=== PATIENT | female | born 1970 | race Caucasian/White ===

== ENCOUNTER 2017-12-01 07:10 | Emergency (ER) | payer BC ==
[2017-12-01 07:31] VITALS: BP 133/98
--- NOTE | 2017-12-01 07:44 | UC ---
Throat Pain/Nasal Forrest HPI - HPI Summary HPI Summary: Patient presents to urgent care reporting that she had a head cold approximately 7 days ago. Patient states he symptoms lasted through the weekend. Patient has a last 48 hours she has increased frontal head pressure. Patient and she finishes pressure behind her eyes. No nausea vomiting. Patient has been alternating Motrin and Tylenol. Patient has taken DayQuil without relief. Patient states showers slightly improved temporarily. Pain is worse when she leans over. No nausea or vomiting. No documented fever but states she's been having chills. No abdominal pain. No nausea vomiting. Patient is a schoolteacher. Patient's medications reviewed this severe patient is not . - History of Current Complaint Chief Complaint: UCRespiratory Stated Complaint: HEADACHE SINUS Time Seen by Provider: 12/01/17 07:28 Hx Obtained From: Patient Hx Last Menstrual Period: 11/05 Onset/Duration: Gradual Onset Severity: Moderate Pain Intensity: 9 Pain Scale Used: 0-10 Numeric - Allergies/Home Medications Allergies/Adverse Reactions: Allergies Allergy/AdvReac Type Severity Reaction Status Date / Time No Known Allergies Allergy Verified 12/01/17 07:31 Home Medications: Home Medications Acetaminophen [Acetaminophen Extra Strength] 1,000 mg PO Q6H PRN 12/01/17 [ History Confirmed 12/01/17] Ibuprofen TAB* [Motrin TAB* 400 MG] 400 mg PO Q6H PRN 12/01/17 [History Confirmed 12/01/17] Lo-Estrin 1 tab PO QAM 12/01/17 [History Confirmed 12/01/17] PMH/Surg Hx/FS Hx/Imm Hx Previously Healthy: Yes - Surgical History Surgical History: Yes Surgery Procedure, Year, and Place: tubal - Family History Known Family History: Positive: Other - Noncontributoryn - Social History Occupation: Employed Full-time Lives: With Family Alcohol Use: Rare Substance Use Type: None Smoking Status (MU): Never Smoked Tobacco Review of Systems ENT: Nasal Discharge, Sinus Congestion, Sinus Pain/Tenderness Respiratory: Negative Cardiovascular: Negative All Other Systems Reviewed And Are Negative: Yes Physical Exam - Summary Physical Exam Summary: Vital Signs Reviewed: Yes A+Ox3, no distress Eyes: Conjunctiva Clear, ROD. EOM intact and full ENT: Hearing grossly normal TM x 2 clear, turbinates inflammed and boggy, + TTP fronal and max sinuses R>L mmoist, uvula midline, no exudate, no erythema Neck: Positive: Supple Respiratory: Positive: No respiratory distress, No accessory muscle use + CTA throughout no w/r Cardiovascular: RRR nl s1, s2 no m/r CBT <2 sec abd soft + BS nt/nd no guarding, no distension Musculoskeletal Exam: YE x 4 without difficulty Strength Intact, ROM Intact Neurological: Positive: Alert, + sensation throughout Psychological: Positive: Normal Response To Family Skin: Positive: no rash, no ecchymosis Triage Information Reviewed: Yes Vital Signs: Initial Vital Signs Temp 98.4 F 12/01/17 07:24 Pulse 86 12/01/17 07:24 Resp 22 12/01/17 07:24 BP 133/98 12/01/17 07:24 Pulse Ox 98 12/01/17 07:24 Throat Pain/Nasal Course/Dx - Course Course Of Treatment: Patient presents to urgent care reporting fluid hours of progressive frontal sinus pressure. Patient states had a head cold last week that seemed improved. Patient denies nausea vomiting. Patient reports feeling fatigued and chills. No relief with Motrin Tylenol. On exam, patient with exam consistent of sinusitis. We'll start Augmentin Flonase. Secretion precaution. Motrin Tylenol. Discussed with patient humidified air decongestants. Patient was given a prescription for Diflucan as frequently gets yeast infections. Work note written for today. - Differential Dx/Diagnosis Provider Diagnoses: sinusitis Discharge - Sign-Out/Discharge Documenting (check all that apply): Patient Departure All imaging exams completed and their final reports reviewed: No Studies - Discharge Plan Condition: Stable Disposition: HOME Prescriptions: Amoxicillin/Clavulanate TAB* [Augmentin TAB 875*] 875 mg PO BID #20 tab Fluconazole [Diflucan 150 MG (NF)] 150 mg PO ONCE PRN #1 tab PRN Reason: vaginal yeast infection Fluticasone NASAL SPRAY 50MCG* [Flonase NASAL SPRAY 50MCG*] 2 spray BOTH NARES DAILY #1 btl Patient Education Materials: Sinusitis (ED) Forms: *Work Release Referrals: Estefanía Lux MD [Primary Care Provider] - Additional Instructions: - Stay well hydrated. Drink plenty of non-alcoholic, non-caffinated beverages. - Alternate ibuprofen (Advil, Motrin) 600mg and Tylenol every 3 hours for pain or fever. Take with food. Do NOT take for more than 4-5 days. - These infections are spread by secretions - do NOT share eating or drinking utensils - clean items you share with other people such as cell phones, computer mouse, TV remote, computer tablets,etc. Once you have been antibiotics for 2 days, change your toothbrush and your pillowcase. - get plenty of restful sleep - you will likely get diarrhea from this medication - eating yogurt or taking pro-biotics may help with diarrhea - humidify the air in the room where you sleep - boil water, run a hot steam shower, vaporizer, cups of water by heat register - okay to take over the counter decongestant and cough medication - use nasal spray as prescribed - You have been given a prescription for diflucan - Okay to take as needed for yeast infection - contact your doctor or return with questions or concerns - Billing Disposition and Condition Condition: STABLE Disposition: Home
== END 2017-12-01 08:01 | disposition home or self-care (01) ==
LOC: UCCORT 07:10
DX: J32.9 Chronic sinusitis, unspecified (principal)
CPT/HCPCS: 99212; G0463

== ENCOUNTER 2018-03-30 14:03 | Emergency (ER) | payer BC ==
[2018-03-30 15:21] VITALS: BP 137/97
--- NOTE | 2018-03-30 16:03 | UC ---
Respiratory Complaint HPI - HPI Summary HPI Summary: 47 yo feamle with sinus pressure and pain as well as bilateral otalgia x almost a week feverish low energy sore throat myalgias - History of Current Complaint Chief Complaint: UCRespiratory Stated Complaint: URI Time Seen by Provider: 03/30/18 15:47 Hx Obtained From: Patient Hx Last Menstrual Period: on 3 month pill pack Onset/Duration: Gradual Onset Severity Initially: Mild Severity Currently: Moderate Pain Intensity: 6 Pain Scale Used: 0-10 Numeric Character: Cough: Nonproductive - and rare Associated Signs And Symptoms: Positive: Fever, Chills, URI, Nasal Congestion, Sinus Discomfort - Allergies/Home Medications Allergies/Adverse Reactions: Allergies Allergy/AdvReac Type Severity Reaction Status Date / Time No Known Allergies Allergy Verified 03/30/18 15:13 Home Medications: Home Medications Dm/Pseudoephed/Acetaminophen [Day-Time Multi-Symptom Co] 1 cap PO Q12HR PRN [History Confirmed 03/30/18] Linaclotide (NF) [Linzess (NF)] 145 mcg PO DAILY 03/30/18 [History Confirmed ] PMH/Surg Hx/FS Hx/Imm Hx Previously Healthy: Yes - Surgical History Surgical History: Yes Surgery Procedure, Year, and Place: tubal - Family History Known Family History: Positive: Hypertension, Other - Noncontributoryn - Social History Alcohol Use: Rare Substance Use Type: None Smoking Status (MU): Never Smoked Tobacco Review of Systems All Other Systems Reviewed And Are Negative: Yes Constitutional: Positive: Fever, Chills, Fatigue Skin: Positive: Negative Eyes: Positive: Negative ENT: Positive: Sore Throat, Ear Ache, Nasal Discharge, Sinus Congestion, Sinus Pain/Tenderness Respiratory: Positive: Negative Cardiovascular: Positive: Negative Gastrointestinal: Positive: Negative Genitourinary: Positive: Negative Motor: Positive: Negative Neurovascular: Positive: Negative Musculoskeletal: Positive: Myalgia Neurological: Positive: Negative Psychological: Positive: Negative Physical Exam Triage Information Reviewed: Yes Appearance: Well-Appearing, No Pain Distress, Well-Nourished Vital Signs: Initial Vital Signs Temp 97.9 F 03/30/18 15:15 Pulse 74 03/30/18 15:15 Resp 18 03/30/18 15:15 BP 137/97 03/30/18 15:15 Pulse Ox 100 03/30/18 15:15 Vital Signs Reviewed: Yes Eyes: Positive: Conjunctiva Clear ENT: Positive: Hearing grossly normal, Nasal congestion, Nasal drainage, Sinus tenderness - R>L, Uvula midline. Negative: TMs normal - left retracted, right unable to vis due to cerumen, she declined ear flush, Tonsillar swelling, Tonsillar exudate, Trismus, Muffled voice, Hoarse voice Neck: Positive: Supple, Nontender, No Lymphadenopathy Respiratory: Positive: Lungs clear, Normal breath sounds, No respiratory distress, No accessory muscle use Cardiovascular: Positive: RRR, No Murmur Musculoskeletal: Positive: ROM Intact, No Edema Neurological: Positive: Alert Psychological Exam: Normal Skin Exam: Normal UC Diagnostic Evaluation - Laboratory O2 Sat by Pulse Oximetry: 100 - normal/not hypoxic Respiratory Course/Dx - Differential Dx/Diagnosis Provider Diagnosis: Acute sinusitis Discharge - Sign-Out/Discharge Documenting (check all that apply): Patient Departure All imaging exams completed and their final reports reviewed: No Studies - Discharge Plan Condition: Stable Disposition: HOME Prescriptions: Amoxicillin/Clavulanate TAB* [Augmentin TAB 875*] 875 mg PO BID #14 tab Fluconazole 150 MG (NF) [Diflucan 150 mg (NF)] 150 mg PO ONCE #1 tab Fluticasone NASAL SPRAY 50MCG* [Flonase NASAL SPRAY 50MCG*] 2 spray BOTH NARES BID #1 btl Patient Education Materials: Sinusitis (ED) Forms: *Work Release Referrals: Estefanía Lux MD [Primary Care Provider] - 6 Days (if not better) Additional Instructions: saline nasal spray two sprays each nostril three times a day for 3 days use flonase 5 minutes after saline - Billing Disposition and Condition Condition: STABLE Disposition: Home
== END 2018-03-30 16:10 | disposition home or self-care (01) ==
LOC: UCEAST 14:03
DX: J01.90 Acute sinusitis, unspecified (principal)
CPT/HCPCS: 99212; G0463